=== PATIENT | female | born 1995 | race Caucasian/White ===

== ENCOUNTER 2021-12-18 22:08 | Inpatient (IN) | payer OTHER, SELFPAY ==
[2021-12-19 06:21] VITALS: BP 112/55; PULSE 53; RESP 16; TEMP 36.5; O2SAT 100
--- NOTE | 2021-12-19 10:27 | HO.PSYADMNOT ---
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 Pt reports alternating depression and hypomanic episodes for a few years. Pt reports she can become depressed sometimes for 2 days but also as long as weeks. Over the past few months her depressive episodes have grown more intense and lasted for longer; she lacks motivation, has diminished interest, low energy, guilty feelings, diminished concentration and eventually hopelessness and passive suicidal thinking. This past month her depression became the worsts it's ever been, lasting for weeks. Feeling worthless she decided to end her life and made a mental list of people she wanted to say good bye to. Pt is adept at keeping her feelings hidden from others, but this time, friends started texting her, letting her know how much the care about her; these warm offerings prompted her to be open with her sports therapist and she came to get help. Pt endorses hypomanic episodes that can last from 3 days to a week and come about 3x per year. During these times, she needs less sleep, has lots of energy, feels really happy, can be productive but gets easily distracted, has racing thoughts and can be tangential in her speech; no risky behaviors. Pt denies any AVH; no drug or alcohol use; no hx of trauma. Pt is open to medication trials. Past Psychiatric History: hx of depressive episodes; hx of hypomanic episodes no hx of psychiatric med trials; no hx of psych treatment Medical Evaluation Reviewed: Hospitalist [place] Pending [facility] Medical History (Updated 12/19/21 @ 21:51 by Placido Guzmán MD) Bipolar 2 disorder Family History: denies family psych hx Social History: college grad; in 1st year of masters for [employer] from [employer]; on [employer] hockey team parents, siblings in [facility] Substance History: none Trauma History: none Diagnostics Vital Signs (24Hr): Vital Signs - 24 hr 12/19/21 06:21 Temperature 97.7 F Pulse Rate 53 Respiratory Rate 16 Blood Pressure 112/55 L Pulse Oximetry 100 Meds/Allergies Meds Home Medications Acetaminophen (Acetaminophen 325 Mg Tablet) 650 mg PO Q6H PRN PRN Reason: Headache/Pain Mild Scale (1-3) Al Hydroxide/Mg Hydroxide (Magnesium Hydrox/Alum Hydrox 30 Ml Oral.Susp) 30 ml PO Q6H PRN PRN Reason: Heartburn/Nausea Hydroxyzine HCl (Hydroxyzine Hcl 25 Mg Tablet) 25 mg PO BEDTIME PRN PRN Reason: Anxiety Magnesium Hydroxide (Milk Of Magnesia 30 Ml Oral.Susp) 30 ml PO DAILY PRN PRN Reason: Constipation Trazodone HCl (Trazodone Hcl 50 Mg Tablet) 50 mg PO BEDTIME PRN PRN Reason: Insomnia Allergies Allergies Allergy/AdvReac Type Severity Reaction Status Date / Time No Known Allergies Allergy Verified 12/18/21 22:55 Mental Status Exam Mental Status Exam Narrative: Pt is alert and oriented; behavior is cooperative; dressed in casual attire with adequate hygiene; mood is described as depressed and affect congruent, downcast, tearful; eye contact appropriate; Speech is normal rate, volume and prosody and not pressured; psychomotor retardation present; thought process is organized and goal directed; Thought content is on struggling with feelings of worthlessness, hopelessness, passive wish; otherwise pertinent to relevant topics and without any delusional content, paranoid ideations or grandiosity; denies any active SI/HI. There is no evidence of perceptual disturbance. Patients insight and judgment are impaired. 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 -depression severe, with plan and intention to kill herself; Suicidality has resolved. She remains depressed but has growing hope at overcoming her depression; she also has a very strong support network of teammates and friends. Pt wants to remain on unit for treatment -meets criteria for bipolar type II; hypomanic episodes are mild and she is able to remain efficient at productive at work -mood stabilizers indicated but pt ambivalent considering Wellbutirn for depression since it's least likely to trigger kia and her manic episodes are mild; however concern is that unchecked, manic episodes could worsen PLAN: CV q15min pt considering meds Patient educated on: diagnosis, medication risk/benefits and therapeutic strategies Informed Consent: understands Reason for continued inpatient stay Substantial Risk for: harm to self and rapid decompensation
--- NOTE | 2021-12-19 11:58 | P.CONHOSP_ITS ---
History of Present Illness Data of Consult Service Date: 12/19/21 Primary Care Provider: Unknown Physician HPI Reason for consult: Routine Medical H&P This is a 26 yo F admitted to the inpatient psychiatric unit who denies any PMH. Medical consult requested for routine medical H&P per protocol. Patient is seen and examined in the exam room. They deny any medical complaints at this time. PMH Denies PSH B/l Tympanostomy tubes as a child for recurrent otitis media SH Denies tobacco, alcohol, illicit substance use FH Reports Thyroid Ca in her mother and Skin Ca in grandparent Review of Systems Review of Systems: negative except HPI [facility] Social History Currently Displaying Signs/Symptoms of Drug Intoxication Withdrawal: No Advance Directives: No Advance Directives Information Provided: No Do you have thoughts of harming others: None Do you have a plan to hurt others: No Plan Meds Allergies Allergy/AdvReac Type Severity Reaction Status Date / Time No Known Allergies Allergy Verified 12/18/21 22:55 Active Medications: Current Medications Acetaminophen (Acetaminophen 325 Mg Tablet) 650 mg PO Q6H PRN PRN Reason: Headache/Pain Mild Scale (1-3) Al Hydroxide/Mg Hydroxide (Magnesium Hydrox/Alum Hydrox 30 Ml Oral.Susp) 30 ml PO Q6H PRN PRN Reason: Heartburn/Nausea Hydroxyzine HCl (Hydroxyzine Hcl 25 Mg Tablet) 25 mg PO BEDTIME PRN PRN Reason: Anxiety Magnesium Hydroxide (Milk Of Magnesia 30 Ml Oral.Susp) 30 ml PO DAILY PRN PRN Reason: Constipation Trazodone HCl (Trazodone Hcl 50 Mg Tablet) 50 mg PO BEDTIME PRN PRN Reason: Insomnia Physical Exam Vital Signs and Narrative: Vital Signs: Last Vital Signs Temp 97.7 F 12/19/21 06:21 Pulse 53 12/19/21 06:21 Resp 16 12/19/21 06:21 BP 112/55 L 12/19/21 06:21 Pulse Ox 100 12/19/21 06:21 Const: Other: General - no acute distress, appears comfortable Cardiovascular - regular rate and rhythm, S1-S2 Lungs - normal respiratory effort, clear to auscultation bilaterally, no wheezing Abdomen - soft, nontender, no rebound or guarding Extremities - no edema bilaterally Neuro - awake and alert, no focal deficits; cn 2-12 in tact b/l Assessment and Plan (1) Routine medical exam: Status: Acute Plan 26 yo F admitted to inpatient psych unit. Medical consultation sought for routine medical H&P. Patient has no active nor chronic medical issues. Patient has been counseled on age appropriate health maintenance as an outpatient. Continue care per primary team. Will sign off. Please re-consult if any issues arise.
--- NOTE | 2021-12-19 15:26 | PC.ADMIT ---
Pt was admitted to the unit, M5, yesterday at 2230, after arriving by ambulance from [facility]. Pt reports a history of depression since age 17 but never received treatment, either as medication or hospitalizations.. 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 Pt reports increase in depression, poor sleep and perseverative thoughts about suiciding. Pt ias alert and oriented, has good eye contact, broad range of affect and superficially bright. Pt denies any medical issues. 15 mins safety checks, med consult ordered, psychiatrist aware of admission
[2021-12-19 18:51] VITALS: BP 119/58; PULSE 56; RESP 16; TEMP 36; O2SAT 100
[2021-12-20 06:00] VITALS: BP 117/56; PULSE 82; TEMP 36.6; O2SAT 99
--- NOTE | 2021-12-20 16:57 | HO.PSYCHPN ---
Subjective Subjective Date of Service: 12/20/21 Reason For Visit: SI w/ plan Interim History: pt depressed and still struggling with hopelessness. She is still suicidal and cannot yet say that she'll refrain from killing herself once discharged. Patients outpt therapist visited today who corroborates and feels patient is still unsafe. That said, pt is engaged in treatment and has come to decision that she'll take medication. 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 Corporate Bond Trader diagnosed with Bipolar type II; pt's manic episodes are mild and she remains able to attend to school, practice during them. Pt was hesitant to start mood stabilizer, anxious about risk/side-effect profile of lithium, depakote; also too risky to wait the time takes for Lamictal to become effective, given level of depression. Patient would like to start Wellbutrin since it helps w/ depression and is least likely to trigger manic episode. Corporate Bond Trader discussed risks of not taking mood stablizer, including worsening intensity of manic episodes and patient understands but would still like to start w/ Wellbutrin for now. talked about nightmares; she has nightmares nearly every night with re-occuring themes of either being chased or loved ones dying; denies hx of trauma. Mental Status Exam Mental Status Exam Narrative: Pt is alert and oriented; behavior is cooperative; dressed in casual attire with adequate hygiene; mood is described as depressed and affect congruent, downcast; eye contact appropriate; Speech is normal rate, volume and prosody and not pressured; no psychomotor retardation present; thought process is organized and goal directed; Thought content is on struggling with feelings of worthlessness, hopelessness, passive wish with intermittent active SI; otherwise pertinent to relevant topics and without any delusional content, paranoid ideations or grandiosity; No HI. There is no evidence of perceptual disturbance.? ?Patients insight and judgment are impaired but improving. Diagnostics Vital Signs (24Hr): Vital Signs - 24 hr 12/19/21 18:51 12/20/21 06:00 Temperature 96.8 F 97.9 F Pulse Rate 56 82 Respiratory Rate 16 Blood Pressure 119/58 L 117/56 L Pulse Oximetry 100 99 Medications Medications Current Medications Acetaminophen (Acetaminophen 325 Mg Tablet) 650 mg PO Q6H PRN PRN Reason: Headache/Pain Mild Scale (1-3) Al Hydroxide/Mg Hydroxide (Magnesium Hydrox/Alum Hydrox 30 Ml Oral.Susp) 30 ml PO Q6H PRN PRN Reason: Heartburn/Nausea Bupropion HCl (Bupropion Hcl Xl 150 Mg Tab.Er.24h) 150 mg PO DAILY GABRIEL Hydroxyzine HCl (Hydroxyzine Hcl 25 Mg Tablet) 25 mg PO BEDTIME PRN PRN Reason: Anxiety Magnesium Hydroxide (Milk Of Magnesia 30 Ml Oral.Susp) 30 ml PO DAILY PRN PRN Reason: Constipation Trazodone HCl (Trazodone Hcl 50 Mg Tablet) 50 mg PO BEDTIME PRN PRN Reason: Insomnia Allergies Allergies Allergy/AdvReac Type Severity Reaction Status Date / Time No Known Allergies Allergy Verified 12/18/21 22:55 Assessment & Plan Assessment & Plan (1) Bipolar 2 disorder: Status: Acute Code(s): F31.81 - Bipolar II disorder Plan 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 -depression severe, with plan and intention to kill herself; Suicidality has resolved. She remains depressed but has growing hope at overcoming her depression; she also has a very strong support network of teammates and friends. Pt wants to remain on unit for treatment -meets criteria for bipolar type II; hypomanic episodes are mild and she is able to remain efficient at productive at work -mood stabilizers indicated but pt ambivalent considering Wellbutirn for depression since it's least likely to trigger kia and her manic episodes are mild; however concern is that unchecked, manic episodes could worsen 12/19 still suicidal but seeking treatment and trying to push off SI thoughts; engaged in tx; start wellbutrin. Though still with SI, pt insight/judgment has improved as she for first time in life is willing to try medications and acknowledging that she has actual depression and needs help PLAN: CV q15min START Wellbutrin XL 150mg; pt decided on this since one of least likely to trigger kia; wants to avoid side-effect risks of mood stabilizers (discussed lamictal, lithium, depakote, latuda) I spent minutes with the patient and/or on the patient floor today, greater than?50% of which was spent counseling/coordinating care. Patient educated on: diagnosis and medication risk/benefits Informed Consent: understands Reason for contiued inpatient stay Substantial Risk for: harm to self
[2021-12-20 18:00] VITALS: BP 119/72; PULSE 95; RESP 16; TEMP 36.4; O2SAT 99
[2021-12-21 06:50] VITALS: BP 107/63; PULSE 57; RESP 18; TEMP 36.6; O2SAT 100
[2021-12-21] MEDS: buPROPion HCl XL 150 MG TAB.ER.24H PO (08:31)
--- NOTE | 2021-12-21 14:14 | HO.PSYCHPN ---
Subjective Subjective Date of Service: 12/21/21 Reason For Visit: SI w/ plan Interim History: Patient seen and discussed with RN Patient tolerating starting Wellbutrin. No side effects. Trying to process her SI and plan but is unable to identify or disclose triggers. Patient has been attending groups. She is engaged in treatment she is denying active SI. She says I am feeling a lot better compared to admission. Talked about transitions coming up in the spring of going back to [employer]. Stresses of school. 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 Review of Systems Review of Systems negative except HPI Mental Status Exam Mental Status Exam Narrative: Pt is alert and oriented; behavior is cooperative; dressed in casual attire with adequate hygiene; mood is described as better and affect congruent, somewhat downcast; eye contact appropriate; Speech is normal rate, volume and prosody and not pressured; no psychomotor retardation present; thought process is organized and goal directed; Thought content is on struggling with feelings of depression and ongoing life challenges and transitions; otherwise pertinent to relevant topics and without any delusional content, paranoid ideations or grandiosity; No HI. There is no evidence of perceptual disturbance.? ?Patients insight and judgment are improving. Diagnostics Vital Signs (24Hr): Vital Signs - 24 hr 12/20/21 18:00 12/21/21 06:50 Temperature 97.6 F 97.9 F Pulse Rate 95 57 Respiratory Rate 16 18 Blood Pressure 119/72 107/63 Pulse Oximetry 99 100 Medications Medications Current Medications Acetaminophen (Acetaminophen 325 Mg Tablet) 650 mg PO Q6H PRN PRN Reason: Headache/Pain Mild Scale (1-3) Al Hydroxide/Mg Hydroxide (Magnesium Hydrox/Alum Hydrox 30 Ml Oral.Susp) 30 ml PO Q6H PRN PRN Reason: Heartburn/Nausea Bupropion HCl (Bupropion Hcl Xl 150 Mg Tab.Er.24h) 150 mg PO DAILY GABRIEL Last Admin: 12/21/21 08:31 Dose: 150 mg Documented by: Hydroxyzine HCl (Hydroxyzine Hcl 25 Mg Tablet) 25 mg PO BEDTIME PRN PRN Reason: Anxiety Magnesium Hydroxide (Milk Of Magnesia 30 Ml Oral.Susp) 30 ml PO DAILY PRN PRN Reason: Constipation Trazodone HCl (Trazodone Hcl 50 Mg Tablet) 50 mg PO BEDTIME PRN PRN Reason: Insomnia Allergies Allergies Allergy/AdvReac Type Severity Reaction Status Date / Time No Known Allergies Allergy Verified 12/18/21 22:55 Assessment & Plan Assessment & Plan (1) Bipolar 2 disorder: Status: Acute Code(s): F31.81 - Bipolar II disorder Plan 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 -depression severe, with plan and intention to kill herself; Suicidality has resolved. She remains depressed but has growing hope at overcoming her depression; she also has a very strong support network of teammates and friends. Pt wants to remain on unit for treatment -meets criteria for bipolar type II; hypomanic episodes are mild and she is able to remain efficient at productive at work -mood stabilizers indicated but pt ambivalent considering Wellbutirn for depression since it's least likely to trigger kia and her manic episodes are mild; however concern is that unchecked, manic episodes could worsen 12/19 still suicidal but seeking treatment and trying to push off SI thoughts; engaged in tx; start wellbutrin. Though still with SI, pt insight/judgment has improved as she for first time in life is willing to try medications and acknowledging that she has actual depression and needs help 4/2: Improving. Tolerating medication changes. PLAN: CV q15min Wellbutrin XL 150mg; I spent minutes with the patient and/or on the patient floor today, greater than?50% of which was spent counseling/coordinating care. Reason for contiued inpatient stay Substantial Risk for: harm to self
[2021-12-21 18:00] VITALS: BP 125/78; PULSE 67; RESP 16
[2021-12-22 06:00] VITALS: BP 118/58; PULSE 52; RESP 18; TEMP 36.2; O2SAT 100
[2021-12-22] MEDS: buPROPion HCl XL 150 MG TAB.ER.24H PO (08:50)
--- NOTE | 2021-12-22 12:47 | P.PNPSI_ITS ---
Subjective Subjective Date of Service: 12/22/21 Reason For Visit: SI w/ plan Interim History: Patient seen and discussed with RN She had an anxiety attack yesterday. She curled in a ball. She had a similar incident a few weeks ago after a session with her therapist. She says she doesn't know what the triggers were. She doesn't relate this to Wellbutrin. She feels better today. She reports feeling better. She is engaged in treatment she is denying active SI. She is socializing with peers. Review of Systems Review of Systems negative except HPI Mental Status Exam Mental Status Exam Narrative: Pt is alert and oriented; behavior is cooperative; dressed in casual attire with adequate hygiene; mood is described as better and affect congruent, somewhat downcast; eye contact appropriate; Speech is normal rate, volume and prosody and not pressured; no psychomotor retardation present; thought process is organized and goal directed; Thought content is on struggling with feelings of depression and ongoing life challenges and transitions; otherwise pertinent to relevant topics and without any delusional content, paranoid ideations or grandiosity; No HI. There is no evidence of perceptual disturbance.? ?Patients insight and judgment are improving. Diagnostics Vital Signs (24Hr): Vital Signs - 24 hr 12/21/21 18:00 12/22/21 06:00 Temperature 97.2 F Pulse Rate 67 52 Respiratory Rate 16 18 Blood Pressure 125/78 118/58 L Pulse Oximetry 100 Medications Medications Current Medications Acetaminophen (Acetaminophen 325 Mg Tablet) 650 mg PO Q6H PRN PRN Reason: Headache/Pain Mild Scale (1-3) Al Hydroxide/Mg Hydroxide (Magnesium Hydrox/Alum Hydrox 30 Ml Oral.Susp) 30 ml PO Q6H PRN PRN Reason: Heartburn/Nausea Bupropion HCl (Bupropion Hcl Xl 150 Mg Tab.Er.24h) 150 mg PO DAILY GABRIEL Last Admin: 12/22/21 08:50 Dose: 150 mg Documented by: Hydroxyzine HCl (Hydroxyzine Hcl 25 Mg Tablet) 25 mg PO BEDTIME PRN PRN Reason: Anxiety Magnesium Hydroxide (Milk Of Magnesia 30 Ml Oral.Susp) 30 ml PO DAILY PRN PRN Reason: Constipation Trazodone HCl (Trazodone Hcl 50 Mg Tablet) 50 mg PO BEDTIME PRN PRN Reason: Insomnia Allergies Allergies Allergy/AdvReac Type Severity Reaction Status Date / Time No Known Allergies Allergy Verified 12/18/21 22:55 Assessment & Plan Assessment & Plan (1) Bipolar 2 disorder: Status: Acute Code(s): F31.81 - Bipolar II disorder 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, who presents for worsening depression and suicidal ideation with plan.? -depression severe, with plan and intention to kill herself; Suicidality has resolved. She remains depressed but has growing hope at overcoming her depression; she also has a very strong support network of teammates and friends. Pt wants to remain on unit for treatment -meets criteria for bipolar type II; hypomanic episodes are mild and she is able to remain efficient at productive at work -mood stabilizers indicated but pt ambivalent considering Wellbutirn for depression since it's least likely to trigger kia and her manic episodes are mild; however concern is that unchecked, manic episodes could worsen 12/19 still suicidal but seeking treatment and trying to push off SI thoughts; engaged in tx; start wellbutrin. Though still with SI, pt insight/judgment has improved as she for first time in life is willing to try medications and acknowledging that she has actual depression and needs help 4/2: Improving. Tolerating medication changes. PLAN: CV q15min Wellbutrin XL 150mg; /3: discussed coping skills and Hydroxyzine PRN anxiety. I spent minutes with the patient and/or on the patient floor today, greater than?50% of which was spent counseling/coordinating care. Reason for contiued inpatient stay Substantial Risk for: harm to self
[2021-12-22 20:51] VITALS: BP 131/82; PULSE 61; TEMP 36.9
[2021-12-23 06:10] VITALS: BP 95/61; PULSE 61; RESP 15; TEMP 36.2; O2SAT 99
[2021-12-23] MEDS: buPROPion HCl XL 150 MG TAB.ER.24H PO ×2 (08:22→12:29)
--- NOTE | 2021-12-23 10:36 | HO.PSYCHPN ---
Subjective Subjective Date of Service: 12/23/21 Reason For Visit: SI w/ plan Interim History: Her depression is better than on admission however, Patient remains depressed. Yesterday she felt a little better and grateful realizing that she was on the unit it made it through Thursday, the day she had planned to kill herself, grateful that she had been saved from making this terrible mistake. However today She has returned to depression. Patient shared that she has had some odd and disturbing thoughts, once rule and upper sleeve but imagining that her skin was Peeling back with it; another time looking at a bottle and had this image of herself being swallowed up into it. Discussed this at length and this is not a hallucination, but rather a mood congruent depressive thought of which patient has insight. At this point she does not think she would commit suicide but is very worried about being impulsive as her sense of worthlessness can become overwhelming and is very new to her to be reaching out for help. Relocation Associate and patient engaged in some talk therapy and discussed some perspective on addressing her feelings of self-worth; patient was able to identify that intellectually she knows she is not worthless but that the feelings can be so overwhelming it is easy to forget. Patient agreed to increasing Wellbutrin to 300 mg; discussed risks and side effects again. She continues to have nightmares of being chased and of family members dying. Agrees to consider prazosin for bedtime Medication Compliance: Intermittent Diagnostics Vital Signs (24Hr): Vital Signs - 24 hr 12/22/21 20:51 12/23/21 06:10 Temperature 98.4 F 97.2 F Pulse Rate 61 61 Respiratory Rate 15 Blood Pressure 131/82 95/61 Pulse Oximetry 99 Medications Medications Current Medications Acetaminophen (Acetaminophen 325 Mg Tablet) 650 mg PO Q6H PRN PRN Reason: Headache/Pain Mild Scale (1-3) Al Hydroxide/Mg Hydroxide (Magnesium Hydrox/Alum Hydrox 30 Ml Oral.Susp) 30 ml PO Q6H PRN PRN Reason: Heartburn/Nausea Bupropion HCl (Bupropion Hcl Xl 150 Mg Tab.Er.24h) 150 mg PO DAILY GABRIEL Last Admin: 12/23/21 08:22 Dose: 150 mg Documented by: Hydroxyzine HCl (Hydroxyzine Hcl 25 Mg Tablet) 25 mg PO BEDTIME PRN PRN Reason: Anxiety Magnesium Hydroxide (Milk Of Magnesia 30 Ml Oral.Susp) 30 ml PO DAILY PRN PRN Reason: Constipation Trazodone HCl (Trazodone Hcl 50 Mg Tablet) 50 mg PO BEDTIME PRN PRN Reason: Insomnia Allergies Allergies Allergy/AdvReac Type Severity Reaction Status Date / Time No Known Allergies Allergy Verified 12/18/21 22:55 Assessment & Plan Assessment & Plan (1) Bipolar 2 disorder: Status: Acute Code(s): F31.81 - Bipolar II disorder Plan Pt is a 26 yo female, 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 -depression severe, with plan and intention to kill herself; Suicidality has resolved. She remains depressed but has growing hope at overcoming her depression; she also has a very strong support network of teammates and friends. Pt wants to remain on unit for treatment -meets criteria for bipolar type II; hypomanic episodes are mild and she is able to remain efficient at productive at work -mood stabilizers indicated but pt ambivalent considering Wellbutirn for depression since it's least likely to trigger kia and her manic episodes are mild; however concern is that unchecked, manic episodes could worsen 12/19 still suicidal but seeking treatment and trying to push off SI thoughts; engaged in tx; start wellbutrin. Though still with SI, pt insight/judgment has improved as she for first time in life is willing to try medications and acknowledging that she has actual depression and needs help 4/2: Improving. Tolerating medication changes. 4 Her depression is better than on admission however, Patient remains depressed. Yesterday she felt a little better and grateful realizing that she was on the unit it made it through Thursday, the day she had planned to kill herself, grateful that she had been saved from making this terrible mistake. However today She has returned to depression. Patient shared that she has had some odd and disturbing thoughts, once rule and upper sleeve but imagining that her skin was Peeling back with it; another time looking at a bottle and had this image of herself being swallowed up into it. Discussed this at length and this is not a hallucination, but rather a mood congruent depressive thought of which patient has insight. At this point she does not think she would commit suicide but is very worried about being impulsive as her sense of worthlessness can become overwhelming and is very new to her to be reaching out for help. Relocation Associate and patient engaged in some talk therapy and discussed some perspective on addressing her feelings of self-worth; patient was able to identify that intellectually she knows she is not worthless but that the feelings can be so overwhelming it is easy to forget. Patient agreed to increasing Wellbutrin to 300 mg; discussed risks and side effects again. She continues to have nightmares of being chased and of family members dying. Agrees to consider prazosin for bedtime -discussed expectations for discharge, wanting patient to be in a place where she is overall feeling safe and able to reach out for help if she was feeling otherwise. PLAN: CV q15min INCREASED to Wellbutrin XL 300mg; Prazosin 1mg qhs for nightmares; leaving as prn for now since she is Ambivalent about adding a new medication I spent minutes with the patient and/or on the patient floor today, greater than?50% of which was spent counseling/coordinating care. Patient educated on: diagnosis, medication risk/benefits and therapeutic strategies Informed Consent: understands Reason for contiued inpatient stay Substantial Risk for: rapid decompensation
[2021-12-23 18:00] VITALS: BP 102/53; PULSE 61; TEMP 36.2
[2021-12-23] MEDS: Prazosin HCL 1 MG CAPSULE PO (21:53)
[2021-12-24 06:00] VITALS: BP 114/67; PULSE 56; RESP 14; TEMP 36.6; O2SAT 100
[2021-12-24] MEDS: buPROPion HCl XL 300 MG TAB.ER.24H PO (09:34)
--- NOTE | 2021-12-24 11:21 | P.PNPSI_ITS ---
Subjective Subjective Date of Service: 12/24/21 Reason For Visit: SI w/ plan Interim History: feeling much better; mood is better; no SI. Says no side-effects from increased Wellbutrin. She can tell her mood is better since she has been making lighthearted jokes and not taking [her]self so seriously. She also shared her deeper realization of God's love for her which she finds is a protective factor. took Prazosin last night and found that nightmare was less intense; little dizzy at night, but it's resolved. Pt has increased hope; she does not think she'll become suicidal again, however, if so, at this point she feels she'll be able to reach out for help. Her father is coming from [facility] [address] this weekend to visit for which pt is excited. Patients therapist Leyla Ventura came to unit today and met with pt and insurance underwriter sales; she agrees that patient seems better and is likely getting ready for discharge. Mental Status Exam Mental Status Exam Narrative: Pt is alert and oriented; behavior is cooperative, calm and friendly; dressed in casual attire with adequate hygiene; mood is described as better and affect congruent, downcast; eye contact appropriate; Speech is normal rate, volume and prosody and not pressured; no psychomotor retardation present; thought process is organized and goal directed; Thought content is on working on depression and planning for aftercare; no SI; otherwise pertinent to relevant topics and without any delusional content, paranoid ideations or grandiosity; No HI. There is no evidence of perceptual disturbance.? ?Patients insight and judgment are fair and adequate Diagnostics Vital Signs (24Hr): Vital Signs - 24 hr 12/23/21 18:00 12/24/21 06:00 Temperature 97.2 F 97.9 F Pulse Rate 61 56 Respiratory Rate 14 Blood Pressure 102/53 L 114/67 Pulse Oximetry 100 Medications Medications Current Medications Acetaminophen (Acetaminophen 325 Mg Tablet) 650 mg PO Q6H PRN PRN Reason: Headache/Pain Mild Scale (1-3) Al Hydroxide/Mg Hydroxide (Magnesium Hydrox/Alum Hydrox 30 Ml Oral.Susp) 30 ml PO Q6H PRN PRN Reason: Heartburn/Nausea Bupropion HCl (Bupropion Hcl Xl 300 Mg Tab.Er.24h) 300 mg PO DAILY GABRIEL Last Admin: 12/24/21 09:34 Dose: 300 mg Documented by: Hydroxyzine HCl (Hydroxyzine Hcl 25 Mg Tablet) 25 mg PO BEDTIME PRN PRN Reason: Anxiety Magnesium Hydroxide (Milk Of Magnesia 30 Ml Oral.Susp) 30 ml PO DAILY PRN PRN Reason: Constipation Prazosin HCl (Prazosin Hcl 1 Mg Capsule) 1 mg PO BEDTIME PRN; Protocol PRN Reason: nightmares Last Admin: 12/23/21 21:53 Dose: 1 mg Documented by: Trazodone HCl (Trazodone Hcl 50 Mg Tablet) 50 mg PO BEDTIME PRN PRN Reason: Insomnia Allergies Allergies Allergy/AdvReac Type Severity Reaction Status Date / Time No Known Allergies Allergy Verified 12/18/21 22:55 Assessment & Plan Assessment & Plan (1) Bipolar 2 disorder: Status: Acute Code(s): F31.81 - Bipolar II disorder Plan 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 -depression severe, with plan and intention to kill herself; Suicidality has resolved. She remains depressed but has growing hope at overcoming her depression; she also has a very strong support network of teammates and friends. Pt wants to remain on unit for treatment -meets criteria for bipolar type II; hypomanic episodes are mild and she is able to remain efficient at productive at work -mood stabilizers indicated but pt ambivalent considering Wellbutirn for depression since it's least likely to trigger kia and her manic episodes are mild; however concern is that unchecked, manic episodes could worsen 12/19 still suicidal but seeking treatment and trying to push off SI thoughts; engaged in tx; start wellbutrin. Though still with SI, pt insight/judgment has improved as she for first time in life is willing to try medications and acknowledging that she has actual depression and needs help 12/21: Improving. Tolerating medication changes. 12/23 Her depression is better than on admission however, Patient remains depressed. Yesterday she felt a little better and grateful realizing that she was on the unit it made it through Thursday, the day she had planned to kill herself, grateful that she had been saved from making this terrible mistake. However today She has returned to depression. Patient shared that she has had some odd and disturbing thoughts, once rule and upper sleeve but imagining that her skin was Peeling back with it; another time looking at a bottle and had this image of herself being swallowed up into it. Discussed this at length and this is not a hallucination, but rather a mood congruent depressive thought of which patient has insight. At this point she does not think she would commit suicide but is very worried about being impulsive as her sense of worthlessness can become overwhelming and is very new to her to be reaching out for help. Airline Stewardess and patient engaged in some talk therapy and discussed some perspective on addressing her feelings of self-worth; patient was able to identify that intellectually she knows she is not worthless but that the feelings can be so overwhelming it is easy to forget. Patient agreed to increasing Wellbutrin to 300 mg; discussed risks and side effects again. She continues to have nightmares of being chased and of family members dying. Agrees to consider prazosin for bedtime -discussed expectations for discharge, wanting patient to be in a place where she is overall feeling safe and able to reach out for help if she was feeling otherwise. 4/5 mood better today after increase in Wellbturin and continuing to challenge negative thoughts about herself, realizing that they are not true. Nightmares less with Prazosin; no med side-effects. Pt feels she getting ready to discharge and her outpt therapist agrees. Pt looking into setting up psychiatrist and therapist in [facility] where she returns in about 1.5 months. PLAN: CV continue Wellbutrin XL 300mg; Prazosin 1mg qhs for nightmares I spent minutes with the patient and/or on the patient floor today, greater than?50% of which was spent counseling/coordinating care. Patient educated on: diagnosis and medication risk/benefits Informed Consent: understands Reason for contiued inpatient stay Substantial Risk for: stable for discharge
[2021-12-24 16:45] VITALS: BP 111/55; PULSE 64; RESP 16; TEMP 36.4; O2SAT 100
[2021-12-24] MEDS: Prazosin HCL 1 MG CAPSULE PO (22:38)
[2021-12-25 06:00] VITALS: BP 109/54; PULSE 62; RESP 15; TEMP 36.8; O2SAT 97
[2021-12-25] MEDS: buPROPion HCl XL 300 MG TAB.ER.24H PO (08:30)
--- NOTE | 2021-12-25 10:42 | P.PNPSI_ITS ---
Subjective Subjective Date of Service: 12/25/21 Reason For Visit: SI w/ plan Interim History: Patient again feels in a good mood, saying her depression is much better. She says her heart rate is a little faster than usual (in the 70s and 80s which for her is elevated) and she is not sure why. She said it started before she took Wellbutrin this morning and has not worsened after taking it. She thinks it is probably just anxiety and would like to continue taking this current medication. She slept well enough last night; she continues to have nightmares but they are overall less intense on prazosin. Last night she did have a dream about suicide however she does not feel emotional upset about it today and does not feel triggered about it; she sees it is just a dream nothing more. She denies any SI at all. She is also experiencing and increased confidence that if she were to again feel unsafe she would reach out for help. Patient would like to proceed with discharge for tomorrow. She feels very well supported in the community is excited that her father is coming to visit this weekend. Discussed follow-up and patient agrees devaughn continue to see bond underwriter as an outpatient for the remaining 2 months she is in the [facility] until she leaves for [facility]. Mental Status Exam Mental Status Exam Narrative: Pt is alert and oriented; behavior is cooperative, calm and friendly; dressed in casual attire with adequate hygiene; mood is described as good and affect congruent, warm, bright; eye contact appropriate; Speech is normal rate, volume and prosody and not pressured; no psychomotor retardation present; thought process is organized and goal directed; Thought content is on working on continuing to work on depression and planning for aftercare;? no SI; otherwise pertinent to relevant topics and without any delusional content, paranoid ideations or grandiosity; No HI. There is no evidence of perceptual disturbance.? ?Patients insight and judgment are fair and adequate Diagnostics Vital Signs (24Hr): Vital Signs - 24 hr 12/24/21 16:45 12/25/21 06:00 Temperature 97.5 F 98.3 F Pulse Rate 64 62 Respiratory Rate 16 15 Blood Pressure 111/55 L 109/54 L Pulse Oximetry 100 97 Medications Medications Current Medications Acetaminophen (Acetaminophen 325 Mg Tablet) 650 mg PO Q6H PRN PRN Reason: Headache/Pain Mild Scale (1-3) Al Hydroxide/Mg Hydroxide (Magnesium Hydrox/Alum Hydrox 30 Ml Oral.Susp) 30 ml PO Q6H PRN PRN Reason: Heartburn/Nausea Bupropion HCl (Bupropion Hcl Xl 300 Mg Tab.Er.24h) 300 mg PO DAILY GABRIEL Last Admin: 12/25/21 08:30 Dose: 300 mg Documented by: Hydroxyzine HCl (Hydroxyzine Hcl 25 Mg Tablet) 25 mg PO BEDTIME PRN PRN Reason: Anxiety Magnesium Hydroxide (Milk Of Magnesia 30 Ml Oral.Susp) 30 ml PO DAILY PRN PRN Reason: Constipation Prazosin HCl (Prazosin Hcl 1 Mg Capsule) 1 mg PO BEDTIME PRN; Protocol PRN Reason: nightmares Last Admin: 12/24/21 22:38 Dose: 1 mg Documented by: Trazodone HCl (Trazodone Hcl 50 Mg Tablet) 50 mg PO BEDTIME PRN PRN Reason: Insomnia Allergies Allergies Allergy/AdvReac Type Severity Reaction Status Date / Time No Known Allergies Allergy Verified 12/18/21 22:55 Assessment & Plan Assessment & Plan (1) Bipolar 2 disorder: Status: Acute Code(s): F31.81 - Bipolar II disorder 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 -depression severe, with plan and intention to kill herself; Suicidality has resolved. She remains depressed but has growing hope at overcoming her depression; she also has a very strong support network of teammates and friends. Pt wants to remain on unit for treatment -meets criteria for bipolar type II; hypomanic episodes are mild and she is able to remain efficient at productive at work -mood stabilizers indicated but pt ambivalent considering Wellbutirn for depression since it's least likely to trigger kia and her manic episodes are mild; however concern is that unchecked, manic episodes could worsen 12/19 still suicidal but seeking treatment and trying to push off SI thoughts; engaged in tx; start wellbutrin. Though still with SI, pt insight/judgment has improved as she for first time in life is willing to try medications and acknowledging that she has actual depression and needs help 12/21: Improving. Tolerating medication changes. 12/23 Her depression is better than on admission however, Patient remains depressed. Yesterday she felt a little better and grateful realizing that she was on the unit it made it through Thursday, the day she had planned to kill herself, grateful that she had been saved from making this terrible mistake. However today She has returned to depression. Patient shared that she has had some odd and disturbing thoughts, once rule and upper sleeve but imagining that her skin was Peeling back with it; another time looking at a bottle and had this image of herself being swallowed up into it. Discussed this at length and this is not a hallucination, but rather a mood congruent depressive thought of which patient has insight. At this point she does not think she would commit suicide but is very worried about being impulsive as her sense of worthlessness can become overwhelming and is very new to her to be reaching out for help. Plastics Worker and patient engaged in some talk therapy and discussed some perspective on addressing her feelings of self-worth; patient was able to identify that intellectually she knows she is not worthless but that the feelings can be so overwhelming it is easy to forget. Patient agreed to increasing Wellbutrin to 300 mg; discussed risks and side effects again. She continues to have nightmares of being chased and of family members dying. Agrees to consider prazosin for bedtime -discussed expectations for discharge, wanting patient to be in a place where she is overall feeling safe and able to reach out for help if she was feeling otherwise. 4/5 mood better today after increase in Wellbturin and continuing to challenge negative thoughts about herself, realizing that they are not true. Nightmares less with Prazosin; no med side-effects. Pt feels she getting ready to discharge and her outpt therapist agrees. Pt looking into setting up psychiatrist and therapist in [facility] where she returns in about 1.5 months. 4/6 patient continues to remain in a good mood and SI remains resolved. She is future oriented and feels stable and ready for discharge. Patient feels confident she would reach out for help if she felt unsafe and is grateful for the strong outpatient supports she already has in place. Regarding outpatient treatment, patient has limited insurance since she is a [employer] and not [place] citizen; social Work reports getting her an outpatient prescriber has not been easy thus far and that it is possible for 1st apartment to be 1 month out. Patient is currently stable and as mentioned has a strong outpatient network of support; while it is unlikely the patient will decompensate, it does not seem worth the risk of leaving patient with limited access to a prescriber should she find herself either having return of depression, having a medication side-effect or possibly a manic episode. Since she only needs a prescriber for 1/2-2 months, bond underwriter will make himself available and follow patient for the remainder of her time in the [place] to which patient agrees. PLAN: CV continue Wellbutrin XL 300mg; Prazosin 1mg qhs for nightmares I spent minutes with the patient and/or on the patient floor today, greater than?50% of which was spent counseling/coordinating care. Patient educated on: medication risk/benefits Informed Consent: understands Reason for contiued inpatient stay Substantial Risk for: stable for discharge
[2021-12-25 18:00] VITALS: BP 118/55; PULSE 60; RESP 20; TEMP 36.5; O2SAT 100
[2021-12-25] MEDS: Prazosin HCL 1 MG CAPSULE PO (21:58)
[2021-12-25] MEDS: traZODone HCL 50 MG TABLET PO (21:59)
[2021-12-26 06:00] VITALS: BP 95/55; PULSE 73; RESP 14; TEMP 37.3; O2SAT 99
[2021-12-26] MEDS: buPROPion HCl XL 300 MG TAB.ER.24H PO (08:32)
--- NOTE | 2021-12-26 09:37 | P.DS_ITS ---
DS: Providers Provider Date of Service: 12/26/21 Date of admission: 12/18/21 22:08 Date of discharge: 12/26/21 Primary care physician: Unknown Physician Attending physician on admission: Placido Guzmán Consults: 12/19/21 10:24 Consult to Hospitalist Routine Consulting Provider: Hospitalist Reason For Exam: admission physical Attending physician on discharge: Placido Guzmán DS: Diagnosis Discharge Diagnosis (1) Bipolar 2 disorder: Status: Chronic DS: Medications Discharge Medications Home Medications: Previous Rx's Medication Instructions Recorded bupropion HCl 300 mg 24 hr tablet, 300 mg PO DAILY 30 Days #30 tab 12/26/21 extended release prazosin 1 mg capsule 1 mg PO BEDTIME PRN 30 Days #30 cap 12/26/21 Mental Status Exam Mental Status Exam Narrative: Pt is alert and oriented; behavior is cooperative, calm and friendly; dressed in casual attire with adequate hygiene; mood is described as good and affect congruent, warm, bright; eye contact appropriate; Speech is normal rate, volume and prosody and not pressured; no psychomotor retardation present; thought process is organized and goal directed; Thought content is on working on continuing to work on depression and planning for aftercare;? no SI; otherwise pertinent to relevant topics and without any delusional content, paranoid ideations or grandiosity; No HI. There is no evidence of perceptual distu rbance.? ?Patients insight and judgment are fair and adequate. 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 -depression severe, with plan and intention to kill herself; Suicidality has resolved. She remains depressed but has growing hope at overcoming her depression; she also has a very strong support network of teammates and friends. Pt wants to remain on unit for treatment -meets criteria for bipolar type II; hypomanic episodes are mild and she is able to remain efficient at productive at work -mood stabilizers indicated but pt ambivalent, not liking side-effect profile of mood stabilizers; Patient instead decided on Wellbutirn to help treat depression since it's one of the least likely to trigger kia; given that her manic ep isodes have been mild; Risks/side effects were discussed and patient understands that her kia is not treated. Over the subsequent days, patient continued to have intermittent suicidality and struggle with thoughts of worthlessness, but was increasingly able to push off suicidal thoughts; Wellbutrin titrated to good effect. She was fully engaged in treatment, forthcoming, attending groups and i ncluding her outpatient therapist who visited her on the unit and discussed case with investment underwriter. Patient attended groups and was appropriate with peers and staff. Patient's depression continued to resolve and SI eventually fully resolved. She was able to discuss how grateful she was to be alive and how disturbing it was that she had at 1 point considered killing herself. Patient had complained of n ightmares of being chased and of family members dying which resolved with prazosin. Patient denies any trauma history. Patient remains stable and Wanted to also discuss discharge. Team and patient's outpatient therapist discussed patient's safety planned if she were to again feel unsafe Which patient felt good about an involved reaching out to her numerous supports and reaching out early on. Patient plan to continue with therapy. Patient had been practicing challenging self-deprecating thoughts and felt increasingly capable. Because patient would soon be leaving the night states him returning to her home in [facility], investment underwriter agreed to continue seeing her as an outpatient over the Following weeks. Her father and supports were helping her find providers in [place] [facility] [facility] so they would be available upon her return. As discharge approach, patient remained in good mood and SI remained fully resolved. She was future oriented and excited about returning to school and sports. Patient was not in imminent risk for harm to self or others and her request for discharge honored. Time spent discussing smoking cessation with patient: 3 to 10 minutes Status at Discharge Functional status at discharge: independent ambulation Overall status at discharge: patient is progressing back to baseline Time Spent with Patient Time attestation: Total time spent providing and/or coordinating discharge services: Time spent: Greater than 30 minutes Discharge Plan Discharge Patient Disposition: Home, Self-Care Discharge Diagnosis: Bipolar disorder type II (mild kia, severe depression), most recently depressed in partial remission Referrals: TIKA BILLS [Other] - 01/03/22 2:45 pm (IN OFFICE) Therapy: Leyla Ventura [Other] - 12/31/21 9:00 am (This appointment is in- office) Psychiatry: Dr. Placido Guzmán [Other] - 01/01/22 1:00 pm (This is a Telehealth appointment Please contact the unit at the above number and have staff page Dr. Guzmán at the time of your appointment.) Discharge Medications: New prazosin 1 mg Capsule 1 mg PO BEDTIME PRN (Reason: nightmares) 30 Days Qty: 30 0RF Protocol: Hold for SBP< HOLD for SBP < : 90 bupropion HCl 300 mg Tablet Extended Release 24 Hr 300 mg PO DAILY 30 Days Qty: 30 0RF quetiapine [Seroquel] 50 mg tablet 50 mg PO BEDTIME PRN (Reason: insomnia) 30 Days Qty: 4 0RF prazosin 2 mg capsule 2 mg PO BEDTIME 30 Days Qty: 30 0RF bupropion HCl 300 mg tablet extended release 24 hr 300 mg PO QAM 90 Days Qty: 90 0RF prazosin 2 mg capsule 2 mg PO BEDTIME 90 Days Qty: 90 0RF prazosin 2 mg capsule 2 mg PO BEDTIME 90 Days Qty: 90 0RF bupropion HCl 300 mg tablet extended release 24 hr 300 mg PO QAM 90 Days Qty: 90 0RF quetiapine [Seroquel] 50 mg tablet 50 mg PO BEDTIME PRN (Reason: insomnia) 90 Days Qty: 60 0RF Rx Instructions: take 1 tab at bedtime as needed for insomnia; may take up to 300mg at bedtime if needed Discharge Orders: Discharge Order (Routine); Ordered 12/26/21 Ordered By: Placido Guzmán Diet: regular diet Activity on Discharge: As tolerated Stand Alone Forms: Patient Portal Discharge page, Community Support Care Plan Goals: Maintain mood and safe behaviors Take medications as prescribed Practice coping skills Continue with outpatient providers and reach out to them as needed Health Concerns: Mood stability and behaviors Plan of Treatment: Follow up with your psychiatric provider and other outpatient providers regarding above concerns Take medications as prescribed Assessment: Risk assessment at time of discharge:? Patient was interviewed prior to discharge and found to be fully oriented and without any SI or HI. Patient has insight and demonstrates good judgment in terms of wanting to pursue treatment. Patient is not in imminent risk of harm to self or others and has a safety plan that includes presenting to the closest ER or calling 911 if feeling unsafe.? Patient has been observed closely by nursing and unit staff throughout admission; patient has not engaged in any behaviors that suggest dangerousness to self or others and has demonstrated appropriate behaviors and impulse control Discharge Date/Time: 12/26/21 14:00
--- NOTE | 2022-01-02 11:25 | HO.OPPROGNO ---
Subjective Subjective Date of Service: 01/01/22 Reason For Visit: SI w/ plan Interim History: Pt says she's doing very well. . She says her mood is really good and denies any SI at all. She finds her teammates and friends very supportive and is feeling optimistic about staying stable. She is also having a good visit with her father. She reports that nightmares remain and although they are less tense than they were they are still bothersome. She agrees to increase prazosin to 2 mg at bedtime, understanding that this may lower blood pressure which is already on the low side and could cause side effect. She will give it a try and see if she can tolerate it. Otherwise she does not feel any need for increase in Wellbutrin. Patient is sleeping and eating well and denies any manic symptoms. Mental Status Exam Mental Status Exam Narrative: Pt is alert and oriented; behavior is cooperative,friendly;mood is described as very good and voice is warm, friendly; Speech is normal rate, volume and prosody and not pressured; thought process is organized and goal directed; Thought content is on staying stable, school, sports and WNL; perception intact; no SI; no delusional content, paranoid ideations or grandiosity; ?Patients insight and judgment are good. Discharge Plan Discharge Patient Disposition: Home, Self-Care Discharge Diagnosis: Bipolar disorder type II (mild kia, severe depression), most recently depressed in partial remission Referrals: TIKA BILLS [Other] - 01/03/22 2:45 pm (IN OFFICE) Therapy: Leyla Ventura [Other] - 12/31/21 9:00 am (This appointment is in-office) Psychiatry: Dr. Placido Guzmán [Other] - 01/01/22 1:00 pm (This is a Telehealth appointment Please contact the unit at the above number and have staff page Dr. Guzmán at the time of your appointment.) Discharge Medications: New prazosin 1 mg Capsule 1 mg PO BEDTIME PRN (Reason: nightmares) 30 Days Qty: 30 0RF Protocol: Hold for SBP< HOLD for SBP < : 90 bupropion HCl 300 mg Tablet Extended Release 24 Hr 300 mg PO DAILY 30 Days Qty: 30 0RF quetiapine [Seroquel] 50 mg tablet 50 mg PO BEDTIME PRN (Reason: insomnia) 30 Days Qty: 4 0RF prazosin 2 mg capsule 2 mg PO BEDTIME 30 Days Qty: 30 0RF Discharge Orders: Discharge Order (Routine); Ordered 12/26/21 Ordered By: Placido Guzmán Diet: regular diet Activity on Discharge: As tolerated Stand Alone Forms: Patient Portal Discharge page, Community Support Care Plan Goals: Maintain mood and safe behaviors Take medications as prescribed Practice coping skills Continue with outpatient providers and reach out to them as needed Health Concerns: Mood stability and behaviors Plan of Treatment: Follow up with your psychiatric provider and other outpatient providers regarding above concerns Take medications as prescribed Assessment: Risk assessment at time of discharge:? Patient was interviewed prior to discharge and found to be fully oriented and without any SI or HI. Patient has insight and demonstrates good judgment in terms of wanting to pursue treatment. Patient is not in imminent risk of harm to self or others and has a safety plan that includes presenting to the closest ER or calling 911 if feeling unsafe.? Patient has been observed closely by nursing and unit staff throughout admission; patient has not engaged in any behaviors that suggest dangerousness to self or others and has demonstrated appropriate behaviors and impulse control Discharge Date/Time: 12/26/21 14:00 Telehealth Telehealth Location of provider rendering services: practice address Location of patient: address on file Patient Identification confirmed using: Name, : Yes Telehealth method: voice only Patient verbally consented to treatment: Yes Minutes spent on Phone/Video with Pt.: 10 Assessment & Plan Assessment & Plan (1) Bipolar 2 disorder: Status: Acute Code(s): F31.81 - Bipolar II disorder Plan History of major depression with SI interspersed with hypomanic episodes. Patient recently discharged from inpatient unit on M5, treated with Wellbutrin and prazosin. Given that her manic episodes were very mild and she remained deficient and functional, and that she did not want to be on a mood stabilizing medication given its side effect profile, patient was started on Wellbutrin to good effect. Today is a follow-up call about a week after discharge. Patient remains in good mood, no SI, no manic symptoms, optimistic and tolerating medications well. Will increase prazosin since she continues to have nightmares. Will follow-up on January 15, 1pm. Patient is due to permanently return home to [facility] this February and typewriter aligner is providing bridge coverage until that time. plan: Continue Wellbutrin XL 300 mg daily Increase prazosin to 2 mg q.h.s. for continued nightmares Will follow-up on January 15 1pm Patient educated on: diagnosis and medication risk/benefits Informed Consent: understands Reason for contiued therapy Substantial Risk for: stable for discharge I spent minutes with the patient and/or on the patient floor today, greater than?50% of which was spent counseling/coordinating care.
--- NOTE | 2022-01-15 13:28 | HO.OPPROGNO ---
Subjective Subjective Date of Service: 01/15/22 Reason For Visit: SI w/ plan Interim History: Patient reports things are going really good. She is in a good mood and denies any SI at all. Patient said that there had been some short lived dips in her mood, but she finds them to be the normal ups and Downs of life and was grateful for them because she was able to see that is all they were just Dips. She denies any manic behaviors or episodes. 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 Patient leaves for camp in [place] 02/05/2022 and then permanent for [facility] 02/20/2022. Marketing Reporting Analyst agrees to give her a 3 month supply of both Wellbutrin and prazosin; she says the meds are working well, nightmares or fully resolved and she denies any side effects. Her family is finding providers out and sat that for cut continue treatment when she gets there. Patient has a strong support network including her therapist's and at this time does not feel a need to have another prescriber appointment but says she will call if she has any questions or if anything in her mood changes. Patient expressed gratitude for help received. Patient remains in good mood, without any SI, stable and doing well. At this time patient is discharged from this internal communications writer's care. PLAN: Continue Wellbutrin XL 300 mg q.day Continue prazosin 2 mg q.h.s. Medication Compliance: Yes Side effects from medications: No Review of Systems Acute medical concerns: No Mental Status Exam Mental Status Exam Narrative: Pt is alert and oriented; behavior is cooperative,friendly;mood is described as really good and voice is warm, friendly; Speech is normal rate, volume and prosody and not pressured;? thought process is organized and goal directed; Thought content is on staying stable, school, sports and WNL; perception intact; no SI; no delusional content, paranoid ideations or grandiosity; ?Patients insight and judgment are good. Discharge Plan Discharge Patient Disposition: Home, Self-Care Discharge Diagnosis: Bipolar disorder type II (mild kia, severe depression), most recently depressed in partial remission Referrals: TIKA BILLS [Other] - 01/03/22 2:45 pm (IN OFFICE) Therapy: Leyla Ventura [Other] - 12/31/21 9:00 am (This appointment is in-office) Psychiatry: Dr. Placido Guzmán [Other] - 01/01/22 1:00 pm (This is a Telehealth appointment Please contact the unit at the above number and have staff page Dr. Guzmán at the time of your appointment.) Discharge Medications: New prazosin 1 mg Capsule 1 mg PO BEDTIME PRN (Reason: nightmares) 30 Days Qty: 30 0RF Protocol: Hold for SBP< HOLD for SBP < : 90 bupropion HCl 300 mg Tablet Extended Release 24 Hr 300 mg PO DAILY 30 Days Qty: 30 0RF quetiapine [Seroquel] 50 mg tablet 50 mg PO BEDTIME PRN (Reason: insomnia) 30 Days Qty: 4 0RF prazosin 2 mg capsule 2 mg PO BEDTIME 30 Days Qty: 30 0RF bupropion HCl 300 mg tablet extended release 24 hr 300 mg PO QAM 90 Days Qty: 90 0RF prazosin 2 mg capsule 2 mg PO BEDTIME 90 Days Qty: 90 0RF Discharge Orders: Discharge Order (Routine); Ordered 12/26/21 Ordered By: Placido Guzmán Diet: regular diet Activity on Discharge: As tolerated Stand Alone Forms: Patient Portal Discharge page, Community Support Care Plan Goals: Maintain mood and safe behaviors Take medications as prescribed Practice coping skills Continue with outpatient providers and reach out to them as needed Health Concerns: Mood stability and behaviors Plan of Treatment: Follow up with your psychiatric provider and other outpatient providers regarding above concerns Take medications as prescribed Assessment: Risk assessment at time of discharge:? Patient was interviewed prior to discharge and found to be fully oriented and without any SI or HI. Patient has insight and demonstrates good judgment in terms of wanting to pursue treatment. Patient is not in imminent risk of harm to self or others and has a safety plan that includes presenting to the closest ER or calling 911 if feeling unsafe.? Patient has been observed closely by nursing and unit staff throughout admission; patient has not engaged in any behaviors that suggest dangerousness to self or others and has demonstrated appropriate behaviors and impulse control Discharge Date/Time: 12/26/21 14:00 Telehealth Telehealth Location of provider rendering services: practice address Location of patient: address on file Patient Identification confirmed using: Name, : Yes Telehealth method: voice only Patient verbally consented to treatment: Yes Patient informed of any privacy concerns related to visit: No Minutes spent on Phone/Video with Pt.: 10 Assessment & Plan Assessment & Plan (1) Bipolar 2 disorder: Status: Chronic Code(s): F31.81 - Bipolar II disorder Plan Patient remains in good mood, without any SI, stable and doing well. Tolerating meds well which she reports are effective. At this time patient is discharged from this internal communications writer's care. Patient will continue care with providers in [facility] where she will permanently resisde. PLAN: Continue Wellbutrin XL 300 mg q.day Continue prazosin 2 mg q.h.s. discharged from this internal communications writer's care as she is moving back to Patient educated on: diagnosis and medication risk/benefits Informed Consent: understands Reason for contiued therapy Substantial Risk for: stable for discharge I spent minutes with the patient and/or on the patient floor today, greater than?50% of which was spent counseling/coordinating care.
--- NOTE | 2022-01-20 15:02 | P.PNPSO_ITS ---
Subjective Subjective Date of Service: 01/20/22 Reason For Visit: SI w/ plan Interim History: Patient called and internal communications writer called back. Patient reports mild hypomanic episode this past weekend where she only needed 3-4 hours sleep, a lot of energy and was mildly irritable. Otherwise no unsafe behavior, no depression no SI. This Thursday patient took Seroquel which is a p.r.n. for insomnia and she slept 9 hours time feel little better today. Director Of Safety advised and patient agreed to take Seroquel the next few nights to make sure she continues to sleep and then see how she does without it. Patient says she will call back if there are any problems. Mental Status Exam Mental Status Exam Narrative: Pt is alert and oriented; behavior is cooperative,friendly;mood is described as good and voice is warm, friendly; Speech is normal rate, volume and prosody and not pressured;? thought process is organized and goal directed; Thought content is on staying stable, school, sports and WNL; perception intact; no SI; no delusional content, paranoid ideations or grandiosity; ?Patients insight and judgment are good. Discharge Plan Discharge Patient Disposition: Home, Self-Care Discharge Diagnosis: Bipolar disorder type II (mild kia, severe depression), most recently depressed in partial remission Referrals: TIKA BILLS [Other] - 01/03/22 2:45 pm (IN OFFICE) Therapy: Leyla Ventura [Other] - 12/31/21 9:00 am (This appointment is in- office) Psychiatry: Dr. Placido Guzmán [Other] - 01/01/22 1:00 pm (This is a Telehealth appointment Please contact the unit at the above number and have staff page Dr. Guzmán at the time of your appointment.) Discharge Medications: New prazosin 1 mg Capsule 1 mg PO BEDTIME PRN (Reason: nightmares) 30 Days Qty: 30 0RF Protocol: Hold for SBP< HOLD for SBP < : 90 bupropion HCl 300 mg Tablet Extended Release 24 Hr 300 mg PO DAILY 30 Days Qty: 30 0RF quetiapine [Seroquel] 50 mg tablet 50 mg PO BEDTIME PRN (Reason: insomnia) 30 Days Qty: 4 0RF prazosin 2 mg capsule 2 mg PO BEDTIME 30 Days Qty: 30 0RF bupropion HCl 300 mg tablet extended release 24 hr 300 mg PO QAM 90 Days Qty: 90 0RF prazosin 2 mg capsule 2 mg PO BEDTIME 90 Days Qty: 90 0RF Discharge Orders: Discharge Order (Routine); Ordered 12/26/21 Ordered By: Placido Guzmán Diet: regular diet Activity on Discharge: As tolerated Stand Alone Forms: Patient Portal Discharge page, Community Support Care Plan Goals: Maintain mood and safe behaviors Take medications as prescribed Practice coping skills Continue with outpatient providers and reach out to them as needed Health Concerns: Mood stability and behaviors Plan of Treatment: Follow up with your psychiatric provider and other outpatient providers regarding above concerns Take medications as prescribed Assessment: Risk assessment at time of discharge:? Patient was interviewed prior to discharge and found to be fully oriented and without any SI or HI. Patient has insight and demonstrates good judgment in terms of wanting to pursue treatment. Patient is not in imminent risk of harm to self or others and has a safety plan that includes presenting to the closest ER or calling 911 if feeling unsafe.? Patient has been observed closely by nursing and unit staff throughout admission; patient has not engaged in any behaviors that suggest dangerousness to self or others and has demonstrated appropriate behaviors and impulse control Discharge Date/Time: 12/26/21 14:00 Assessment & Plan Assessment & Plan (1) Bipolar 2 disorder: Status: Chronic Code(s): F31.81 - Bipolar II disorder Plan Patient remains in good mood, without any SI, stable and doing well.? Tolerating meds well which she reports are effective. At this time patient is discharged from this internal communications writer's care.? Patient will continue care with providers in [facility] where she will permanently resisde. 01/20 Patient called to get advice on mild hypomanic episode this past weekend where she is getting little sleep, 3-4 hours. Patient took her p.r.n. Seroquel which was prescribed for this purpose and reports that it worked well, sleeping 9 hours last night. Patient without any pressured speech, linear, organized and appropriate in thought. Will continue to take Seroquel and call back if this does not resolve. PLAN: Seroquel 50mg prn for insomnia Continue Wellbutrin XL 300 mg q.day Continue prazosin 2 mg q.h.s. discharged from this internal communications writer's care as she is moving back to [place] Patient educated on: medication risk/benefits Informed Consent: understands Reason for contiued therapy Substantial Risk for: stable for discharge I spent minutes with the patient and/or on the patient floor today, greater than?50% of which was spent counseling/coordinating care.
--- NOTE | 2022-01-24 10:06 | P.PNPSO_ITS ---
Subjective Subjective Date of Service: 01/24/22 Reason For Visit: SI w/ plan Interim History: Follow-up phone call Patient stable, no SI. Hypomania resolved. Patient doing well Mental Status Exam Mental Status Exam Narrative: Pt is alert and oriented; behavior is cooperative,friendly;mood is described as good and voice is warm, friendly; Speech is normal rate, volume and prosody and not pressured;? thought process is organized and goal directed; Thought content is on staying stable, school, sports and WNL; perception intact; no SI; no delusional content, paranoid ideations or grandiosity; ?Patients insight and judgment are good. Discharge Plan Discharge Patient Disposition: Home, Self-Care Discharge Diagnosis: Bipolar disorder type II (mild kia, severe depression), most recently depressed in partial remission Referrals: TIKA BILLS [Other] - 01/03/22 2:45 pm (IN OFFICE) Therapy: Leyla Ventura [Other] - 12/31/21 9:00 am (This appointment is in- office) Psychiatry: Dr. Placido Guzmán [Other] - 01/01/22 1:00 pm (This is a Telehealth appointment Please contact the unit at the above number and have staff page Dr. Guzmán at the time of your appointment.) Discharge Medications: New prazosin 1 mg Capsule 1 mg PO BEDTIME PRN (Reason: nightmares) 30 Days Qty: 30 0RF Protocol: Hold for SBP< HOLD for SBP < : 90 bupropion HCl 300 mg Tablet Extended Release 24 Hr 300 mg PO DAILY 30 Days Qty: 30 0RF quetiapine [Seroquel] 50 mg tablet 50 mg PO BEDTIME PRN (Reason: insomnia) 30 Days Qty: 4 0RF prazosin 2 mg capsule 2 mg PO BEDTIME 30 Days Qty: 30 0RF bupropion HCl 300 mg tablet extended release 24 hr 300 mg PO QAM 90 Days Qty: 90 0RF prazosin 2 mg capsule 2 mg PO BEDTIME 90 Days Qty: 90 0RF prazosin 2 mg capsule 2 mg PO BEDTIME 90 Days Qty: 90 0RF bupropion HCl 300 mg tablet extended release 24 hr 300 mg PO QAM 90 Days Qty: 90 0RF quetiapine [Seroquel] 50 mg tablet 50 mg PO BEDTIME PRN (Reason: insomnia) 90 Days Qty: 60 0RF Rx Instructions: take 1 tab at bedtime as needed for insomnia; may take up to 300mg at bedtime if needed Discharge Orders: Discharge Order (Routine); Ordered 12/26/21 Ordered By: Placido Guzmán Activity on Discharge: As tolerated Stand Alone Forms: Patient Portal Discharge page, Community Support Care Plan Goals: Maintain mood and safe behaviors Take medications as prescribed Practice coping skills Continue with outpatient providers and reach out to them as needed Health Concerns: Mood stability and behaviors Plan of Treatment: Follow up with your psychiatric provider and other outpatient providers regarding above concerns Take medications as prescribed Assessment: Risk assessment at time of discharge:? Patient was interviewed prior to discharge and found to be fully oriented and without any SI or HI. Patient has insight and demonstrates good judgment in terms of wanting to pursue treatment. Patient is not in imminent risk of harm to self or others and has a safety plan that includes presenting to the closest ER or calling 911 if feeling unsafe.? Patient has been observed closely by nursing and unit staff throughout admission; patient has not engaged in any behaviors that suggest dangerousness to self or others and has demonstrated appropriate behaviors and impulse control Discharge Date/Time: 12/26/21 14:00 Telehealth Telehealth Location of provider rendering services: practice address Location of patient: address on file Patient Identification confirmed using: Name, : Yes Telehealth method: voice only Patient verbally consented to treatment: Yes Minutes spent on Phone/Video with Pt.: 5 Assessment & Plan Assessment & Plan (1) Bipolar 2 disorder: Status: Chronic Code(s): F31.81 - Bipolar II disorder Plan Patient remains in good mood, without any SI, stable and doing well.? Tolerating meds well which she reports are effective. will have one last phone session; otherwise Patient will continue care with providers in [facility] where she will permanently resisde. PLAN: Seroquel 50mg prn for insomnia Continue Wellbutrin XL 300 mg q.day Continue prazosin 2 mg q.h.s. 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
--- NOTE | 2022-02-03 13:57 | HO.OPPROGNO ---
Subjective Subjective Date of Service: 02/03/22 Reason For Visit: SI w/ plan Interim History: pt reports she's doing well; denies any depression or any SI; sleeping well and denies any manic sypmptoms. No longer needing seroquel. Pt feels good about plan and got ok from insurance for 3 months supply to get her back to . Pt will call health underwriter if any problems, depression or kia but otherwise will continue care in . Mental Status Exam Mental Status Exam Narrative: Pt is alert and oriented; behavior is cooperative,friendly;mood is described as good and voice is warm, friendly; Speech is normal rate, volume and prosody and not pressured;? thought process is organized and goal directed; Thought content is on staying stable and WNL; perception intact; no SI; no manic symptoms; no delusional content, paranoid ideations or grandiosity; ?Patients insight and judgment are good. Discharge Plan Discharge Patient Disposition: Home, Self-Care Discharge Diagnosis: Bipolar disorder type II (mild kia, severe depression), most recently depressed in partial remission Referrals: TIKA BILLS [Other] - 01/03/22 2:45 pm (IN OFFICE) Therapy: Leyla Ventura [Other] - 12/31/21 9:00 am (This appointment is in-office) Psychiatry: Dr. Placido Guzmán [Other] - 01/01/22 1:00 pm (This is a Telehealth appointment Please contact the unit at the above number and have staff page Dr. Guzmán at the time of your appointment.) Discharge Medications: New prazosin 1 mg Capsule 1 mg PO BEDTIME PRN (Reason: nightmares) 30 Days Qty: 30 0RF Protocol: Hold for SBP< HOLD for SBP < : 90 bupropion HCl 300 mg Tablet Extended Release 24 Hr 300 mg PO DAILY 30 Days Qty: 30 0RF quetiapine [Seroquel] 50 mg tablet 50 mg PO BEDTIME PRN (Reason: insomnia) 30 Days Qty: 4 0RF prazosin 2 mg capsule 2 mg PO BEDTIME 30 Days Qty: 30 0RF bupropion HCl 300 mg tablet extended release 24 hr 300 mg PO QAM 90 Days Qty: 90 0RF prazosin 2 mg capsule 2 mg PO BEDTIME 90 Days Qty: 90 0RF prazosin 2 mg capsule 2 mg PO BEDTIME 90 Days Qty: 90 0RF bupropion HCl 300 mg tablet extended release 24 hr 300 mg PO QAM 90 Days Qty: 90 0RF quetiapine [Seroquel] 50 mg tablet 50 mg PO BEDTIME PRN (Reason: insomnia) 90 Days Qty: 60 0RF Rx Instructions: take 1 tab at bedtime as needed for insomnia; may take up to 300mg at bedtime if needed Discharge Orders: Discharge Order (Routine); Ordered 12/26/21 Ordered By: Placido Guzmán Diet: regular diet Activity on Discharge: As tolerated Stand Alone Forms: Patient Portal Discharge page, Community Support Care Plan Goals: Maintain mood and safe behaviors Take medications as prescribed Practice coping skills Continue with outpatient providers and reach out to them as needed Health Concerns: Mood stability and behaviors Plan of Treatment: Follow up with your psychiatric provider and other outpatient providers regarding above concerns Take medications as prescribed Assessment: Risk assessment at time of discharge:? Patient was interviewed prior to discharge and found to be fully oriented and without any SI or HI. Patient has insight and demonstrates good judgment in terms of wanting to pursue treatment. Patient is not in imminent risk of harm to self or others and has a safety plan that includes presenting to the closest ER or calling 911 if feeling unsafe.? Patient has been observed closely by nursing and unit staff throughout admission; patient has not engaged in any behaviors that suggest dangerousness to self or others and has demonstrated appropriate behaviors and impulse control Discharge Date/Time: 12/26/21 14:00 Telehealth Telehealth Location of provider rendering services: practice address Location of patient: other (in [place]) Patient Identification confirmed using: Name, : Yes Telehealth method: voice only Patient verbally consented to treatment: Yes Minutes spent on Phone/Video with Pt.: 5 Assessment & Plan Assessment & Plan (1) Bipolar 2 disorder: Status: Chronic Code(s): F31.81 - Bipolar II disorder Assessment and Plan: remains in good mood, no kia, no deprssion, no SI; sleeping, eating well; meds working well and no side-effects. asks for 3 months supply to get back to [place] which has been ongoing plan since discharge. meds orderd with 3 months supply pt will continue tx in [facility] Patient educated on: diagnosis and medication risk/benefits Informed Consent: understands I spent minutes with the patient and/or on the patient floor today, greater than?50% of which was spent counseling/coordinating care.
== END 2021-12-26 14:00 | disposition home or self-care (01) | DRG 885 ==
PROVIDERS: Admitting Provider Psychiatry & Neurology Psychiatry; Visit Provider Psychiatry & Neurology Psychiatry
DX: F31.81 Bipolar II disorder (principal); R45.851 Suicidal ideations; F41.0 Panic disorder [episodic paroxysmal anxiety]; Z79.899 Other long term (current) drug therapy